=== PATIENT | male | born 1985 | race Caucasian/White ===

== ENCOUNTER 2016-12-02 01:25 | Emergency (ER) | payer SELFPAY ==
[~2016-12-02] VITALS: Ht 177.8 cm; Wt 145.6 kg
[~2016-12-02 01:25] MED LIST: COUM5TAB PO
[2016-12-02 01:32] VITALS: BP 138/90; PULSE 105; RESP 20; TEMP 99.6; O2SAT 96
--- NOTE | 2016-12-02 01:45 | PD ---
HPI Chief Complaint: Pain: Acute or Chronic Time Seen by Provider: 03:26 Travel History International Travel<30 days: No Contact w/Intl Traveler<30days: No Traveled to known affect area: No History of Present Illness HPI 31-year-old male presents to the emergency department for complaint of swelling and discomfort like a leg cramp affecting the right lower extremity specifically the calf area. Patient has history of recurrent DVT and pulmonary embolism. Patient is prescribed Coumadin/warfarin but is noncompliant. Patient reportedly has been out of his Coumadin/warfarin for 2 weeks but has been saving a few Coumadin for emergency and took them yesterday. Patient denies any chest pain pleuritic pain shortness of breath hemoptysis near- syncope or syncope. Patient states because he doesn't have insurance is why he is not compliant with his medications. PFSH Past Medical History Narrative Medical PE DVT clotting disorder no tobacco use nursing notes reviewed Cancer: No Cardiovascular Problems: Yes Diminished Hearing: No Deep Vein Thrombosis: Yes Endocrine: No Genitourinary: No Immune Disorder: No Musculoskeletal: No Neurologic: No Psychiatric: No Reproductive: No Respiratory: No Immunizations Current: Yes Past Surgical History Other Surgery: No Social History Alcohol Use: No Tobacco Use: No Substance Use: No Allergies-Medications (Allergen,Severity, Reaction): Coded Allergies: No Known Allergies (Unverified , 05/09/16) Reported Meds & Prescriptions Reported Meds & Active Scripts Active Warfarin 5 Mg Tab 5 Mg PO DAILY Review of Systems Except as stated in HPI: all other systems reviewed are Neg Physical Exam Narrative GENERAL: Well-developed well-nourished male in no acute distress no respiratory distress; triage vital signs are within normal range except for tachycardia of 105 SKIN: Warm and dry. HEAD: Normocephalic. EYES: No scleral icterus. No injection or drainage. NECK: Supple, trachea midline. No JVD or lymphadenopathy. CARDIOVASCULAR: Regular rate and rhythm without murmurs, gallops, or rubs. RESPIRATORY: Breath sounds equal bilaterally. No accessory muscle use. GASTROINTESTINAL: Abdomen soft, non-tender, nondistended. MUSCULOSKELETAL: No cyanosis, right lower leg edema with posterior calf tenderness dorsalis pedis pulse 2+ to palpation bilaterally with prescription for refill less than 2 seconds per digit BACK: Nontender without obvious deformity. No CVA tenderness. Data Data Last Documented VS Vital Signs Date Time Temp Pulse Resp B/P Pulse Ox O2 Delivery O2 Flow Rate FiO2 12/02/16 02:01 20 12/02/16 01:32 99.6 105 138/90 96 Orders Us Leg Venous Doppler (12/02/16 ) Prothrombin Time / Inr (Pt) (12/02/16 01:42) Labs Laboratory Tests Test 12/02/16 02:00 Prothrombin Time 13.6 SEC Prothromb Time International 1.2 RATIO Ratio MDM Medical Decision Making Medical Screen Exam Complete: Yes Emergency Medical Condition: Yes Medical Record Reviewed: Yes Interpretation(s) inr: 1.2, subtherapeutic Last Impressions Lower Extremity Ultrasound 12/02/16 0000 Signed Impressions: Service Date/Time: Friday, December 02, 2016 02:45 - CONCLUSION: Normal examination. Luis Howard MD Differential Diagnosis Recurrent DVT, medication noncompliance, subtherapeutic INR Narrative Course RLE US ordered INR subtherapeutic at 1.2 however patient has reported that he has not been able take the medication as prescribed for the past 2 weeks @3:28 AM ultrasound of the lower extremity reveals no DVT; patient is informed of imaging results and INR; patient will be given refill for his Coumadin therapy and encouraged to follow-up with his primary care provider Diagnosis Primary Impression: Leg pain, right Additional Impression: Medication refill Referrals: Primary Care Physician call for appointment Patient Instructions: General Instructions Med/Other Pt SpecificInfo: Prescription(s) given Scripts Warfarin 5 Mg Tab5 Mg PO DAILY #30 TAB Ref 0 Prov:Puja Laurent MD 12/02/16 Disposition: 01 DISCHARGE HOME Condition: Stable Puja Laurent MD Dec 02, 2016 01:45 Puja Laurent MD Dec 02, 2016 01:45
[2016-12-02 02:12] LABS: INTERNATIONAL NORMALIZED RATIO 1.2 RATIO; PROTHROMBIN TIME - PATIENT 13.6 SEC (9.8-11.6)
[2016-12-02 02:36] VITALS: BP 119/56; PULSE 93; RESP 20; O2SAT 98
--- NOTE | 2016-12-02 03:02 | RADHPO ---
EXAM DATE/TIME: 12/02/2016 02:45 [facility] COMPARISON: No previous studies available for comparison. INDICATIONS : Thrombosis. Right calf pain and swelling. MEDICAL HISTORY : DVT. Pulmonary embolism. SURGICAL HISTORY : None. ENCOUNTER: [facility] ACUITY: 3 days PAIN SCORE: 3/10 LOCATION: Right leg. TECHNIQUE: Venous ultrasound of the leg was performed from the inguinal ligament to the proximal calf. Real-kacey e, color Doppler and spectral tracing, compression and augmentation techniques were used. FINDINGS: There is normal compressibility of the deep venous system from the inguinal region to the proximal ca lf. No echogenic clot is seen in the lumen of the common femoral, femoral, popliteal, and posterior tibial veins. There is a normal response of the venous system to proximal and distal augmentation an d respiration. CONCLUSION: Normal examination. Luis Howard MD on December 02, 2016 at 3:00 Board Certified Radiologist. This report was verified electronically.
[2016-12-02] MEDS ORDERED: WARF-23 PO (03:29)
[2016-12-02 03:47] VITALS: BP 117/54
== END 2016-12-02 03:50 | disposition home or self-care (01) ==
LOC: PHED 01:25
DX: M79.661 Pain in right lower leg (principal); Z76.0 Encounter for issue of repeat prescription; Z86.711 Personal history of pulmonary embolism; Z86.718 Personal history of other venous thrombosis and embolism
CPT/HCPCS: 85610; 93971

== ENCOUNTER 2017-12-08 15:09 | Emergency (ER) | payer SELFPAY ==
[~2017-12-08 15:09] MED LIST changes: -COUM5TAB PO; +WARF-23 PO
[2017-12-08 15:14] VITALS: BP 150/70; PULSE 107; RESP 14; TEMP 98.7; O2SAT 97
--- NOTE | 2017-12-08 15:56 | RADRPT ---
EXAM DATE/TIME: 12/08/2017 15:26 [facility] COMPARISON: US LEG RIGHT VENOUS DOPPLER, December 02, 2016, 2:45. INDICATIONS : Right leg pain. MEDICAL HISTORY : DVT. Pulmonary embolism. SURGICAL HISTORY : None. ENCOUNTER: [facility] ACUITY: 4 - 6 months PAIN SCORE: 4/10 LOCATION: Right leg. TECHNIQUE: Venous ultrasound of the leg was performed from the inguinal ligament to the proximal calf. Real-kacey e, color Doppler and spectral tracing, compression and augmentation techniques were used. FINDINGS: There is normal compressibility of the deep venous system from the inguinal region to the proximal ca lf. No echogenic clot is seen in the lumen of the common femoral, femoral, popliteal, and posterior tibial veins. There is a normal response of the venous system to proximal and distal augmentation an d respiration. CONCLUSION: No evidence of DVT. No significant change compared to the prior study. Tristen Randhawa MD on December 08, 2017 at 15:52 Board Certified Radiologist. This report was verified electronically.
[2017-12-08] MEDS ORDERED: XARE20TA PO (16:02)
[2017-12-08] MEDS ORDERED: TRAM50TA PO (16:02)
[2017-12-08] MEDS ORDERED: XARE15TA PO (16:02)
[2017-12-08 16:05] LABS: BASOPHIL # 0.1 TH/MM3 (0-0.2); BASOPHIL % 0.6 % (0.0-2.0); EOSINOPHIL # 0.3 TH/MM3 (0-0.4); EOSINOPHIL % 3.2 % (0.0-4.0); HEMATOCRIT 41.5 % (39.0-51.0); HEMOGLOBIN 14.7 GM/DL (13.0-17.0); LYMPHOCYTE # 2.4 TH/MM3 (1.0-4.8); MEAN CELL VOLUME 93.9 FL (80.0-100.0); MEAN CORPUSCULAR HEMOGLOBIN 33.4 PG (27.0-34.0); MEAN CORPUSCULAR HGB CONC 35.6 % (32.0-36.0); MEAN PLATELET VOLUME 8.9 FL (7.0-11.0); MONO % 8.4 % (0.0-8.0); MONOCYTE # 0.8 TH/MM3 (0-0.9); NEUT % 62.8 % (16.0-70.0); PLATELET COUNT 226 TH/MM3 (150-450); RED BLOOD COUNT 4.42 MIL/MM3 (4.50-5.90); RED CELL DISTRIBUTION WIDTH 12.9 % (11.6-17.2); WHITE BLOOD COUNT 9.6 TH/MM3 (4.0-11.0)
--- NOTE | 2017-12-08 16:09 | PD ---
HPI Chief Complaint: Edema Time Seen by Provider: 15:50 Travel History International Travel<30 days: No Contact w/Intl Traveler<30days: No Traveled to known affect area: No History of Present Illness HPI 32-year-old male presents to the emergency department with increasing pain and swelling in the right lower extremity. Patient has history of DVT as well as PE in the past. Patient is currently prescribed Coumadin but has been intermittent with its use secondary to insurance issues. In the right leg has been progressive over the last week. He is questioning whether he has a recurrent DVT. Recently received new health insurance. He is questioning if he should be on something other than Coumadin. He is not currently established with a local PCP. He denies fever, chills, shortness of breath, or other constitutional symptoms. Pain is currently about a 6 out of 10 and worse with palpation of the area. No known drug allergies. PFSH Past Medical History Cancer: No Cardiovascular Problems: Yes Diminished Hearing: No Deep Vein Thrombosis: Yes Endocrine: No Genitourinary: No Immune Disorder: No Musculoskeletal: No Neurologic: No Psychiatric: No Reproductive: No Respiratory: No Immunizations Current: Yes Past Surgical History Other Surgery: No Social History Alcohol Use: No Tobacco Use: No Substance Use: Yes (MARIJUANA) Allergies-Medications (Allergen,Severity, Reaction): Coded Allergies: No Known Allergies (Unverified Adverse Reaction, Unknown, 12/08/17) Reported Meds & Prescriptions Reported Meds & Active Scripts Active Reported Warfarin 3 Mg Tab 3 Mg PO DAILY Review of Systems Except as stated in HPI: all other systems reviewed are Neg General / Constitutional: No: Fever Eyes: No: Visual changes HENT: No: Headaches Cardiovascular: No: Chest Pain or Discomfort Respiratory: No: Shortness of Breath Gastrointestinal: No: Abdominal Pain Genitourinary: No: Dysuria Musculoskeletal: Positive: Myalgias, Edema, Pain Skin: No Rash Neurologic: No: Weakness Psychiatric: No: Depression Endocrine: No: Polydipsia Hematologic/Lymphatic: No: Easy Bruising Physical Exam Narrative GENERAL: Moderately obese male in no obvious distress SKIN: Warm and dry. Normal color. Normal turgor. Patient has obvious venous stasis area of the right lower medial calf secondary to varicose veins. No significant heat but this is the area is tender. It is somewhat indurated. Patient has tenderness as well along the right medial calf. HEAD: Atraumatic. Normocephalic. EYES: Pupils equal and round. No scleral icterus. No injection or drainage. ENT: No nasal bleeding or discharge. Mucous membranes pink and moist. NECK: Trachea midline. No JVD. CARDIOVASCULAR: Regular rate and rhythm. RESPIRATORY: No accessory muscle use. Clear to auscultation. Breath sounds equal bilaterally. GASTROINTESTINAL: Abdomen soft, non-tender, nondistended. Hepatic and splenic margins not palpable. MUSCULOSKELETAL: Extremities without clubbing, cyanosis, or edema. No obvious deformities. Range of motion is full. Negative Homans sign noted. Neurovascular exam is normal. NEUROLOGICAL: Awake and alert. No obvious cranial nerve deficits. Motor grossly within normal limits. Five out of 5 muscle strength in the arms and legs. Normal speech. PSYCHIATRIC: Appropriate mood and affect; insight and judgment normal. Data Data Last Documented VS Vital Signs Date Time Temp Pulse Resp B/P (MAP) Pulse Ox O2 Delivery O2 Flow Rate FiO2 12/08/17 15:14 98.7 107 14 150/70 (96) 97 Orders Orders Complete Blood Count With Diff (12/08/17 15:21) Comprehensive Metabolic Panel (12/08/17 15:21) Prothrombin Time / Inr (Pt) (12/08/17 15:21) Act Partial Throm Time (Ptt) (12/08/17 15:21) Us Leg Venous Doppler (12/08/17 ) Ed Discharge Order (12/08/17 17:04) Labs Laboratory Tests Test 12/08/17 15:25 White Blood Count 9.6 TH/MM3 Red Blood Count 4.42 MIL/MM3 Hemoglobin 14.7 GM/DL Hematocrit 41.5 % Mean Corpuscular Volume 93.9 FL Mean Corpuscular Hemoglobin 33.4 PG Mean Corpuscular Hemoglobin Concent 35.6 % Red Cell Distribution Width 12.9 % Platelet Count 226 TH/MM3 Mean Platelet Volume 8.9 FL Neutrophils (%) (Auto) 62.8 % Lymphocytes (%) (Auto) 25.0 % Monocytes (%) (Auto) 8.4 % Eosinophils (%) (Auto) 3.2 % Basophils (%) (Auto) 0.6 % Neutrophils # (Auto) 6.0 TH/MM3 Lymphocytes # (Auto) 2.4 TH/MM3 Monocytes # (Auto) 0.8 TH/MM3 Eosinophils # (Auto) 0.3 TH/MM3 Basophils # (Auto) 0.1 TH/MM3 CBC Comment DIFF FINAL Differential Comment Prothrombin Time 12.0 SEC Prothromb Time International Ratio 1.2 RATIO Activated Partial Thromboplast Time 23.6 SEC Blood Urea Nitrogen 13 MG/DL Creatinine 0.90 MG/DL Random Glucose 76 MG/DL Total Protein 8.2 GM/DL Albumin 4.1 GM/DL Calcium Level 8.8 MG/DL Alkaline Phosphatase 70 U/L Aspartate Amino Transf (AST/SGOT) 34 U/L Alanine Aminotransferase (ALT/SGPT) 67 U/L Total Bilirubin 0.2 MG/DL Sodium Level 140 MEQ/L Potassium Level 3.7 MEQ/L Chloride Level 110 MEQ/L Carbon Dioxide Level 24.2 MEQ/L Anion Gap 6 MEQ/L Estimat Glomerular Filtration Rate 97 ML/MIN [facility] Medical Decision Making Medical Screen Exam Complete: Yes Emergency Medical Condition: Yes Medical Record Reviewed: Yes Differential Diagnosis Phlebitis. DVT. Right calf pain. Varicose veins. Narrative Course Labs ordered including including CBC, CMP, and coagulation studies. Ultrasound of the right leg is ordered to rule out DVT. Ultrasound is negative for DVT. Labs show normal CBC. CMP is unremarkable Violation states show PT of 12.0, INR 1.2. APTT is 23.6. Patient is to discontinue his Coumadin, and start Xarelto 15 mg twice a day 21 days, and then start Xarelto 20 mg daily #30. Patient is given tramadol 50 mg one every 6 hours when necessary pain #20. Patient is to use hot packs to the area that is painful, for stockings as discussed. Patient follow local primary care physician. Patient can return if symptoms worsen as needed. Diagnosis Primary Impression: Phlebitis of leg, right, superficial Additional Impression: History of DVT in adulthood Referrals: [facility] Patient Instructions: General Instructions, Superficial Thrombophlebitis (ED) Additional Instructions: Patient is to discontinue his Coumadin, and start Xarelto 15 mg twice a day 21 days, and then start Xarelto 20 mg daily #30. Patient is given tramadol 50 mg one every 6 hours when necessary pain #20. Patient is to use hot packs to the area that is painful, for stockings as discussed. Patient follow local primary care physician. Patient can return if symptoms worsen as needed. Med/Other Pt SpecificInfo: Prescription(s) given, Existing Med Changed Disposition: 01 DISCHARGE HOME Condition: Stable Allan Christian Dec 08, 2017 16:09
[2017-12-08] MEDS ORDERED: WARF-58 PO (16:10)
[2017-12-08 16:19] LABS: INTERNATIONAL NORMALIZED RATIO 1.2 RATIO
[2017-12-08 16:41] LABS: ALBUMIN 4.1 GM/DL (3.4-5.0); ALT (GPT) 67 U/L (12-78); AST (GOT) 34 U/L (15-37); BICARBONATE 24.2 MEQ/L (21.0-32.0); BLOOD UREA NITROGEN 13 MG/DL (7-18); CALCIUM 8.8 MG/DL (8.5-10.1); CHLORIDE 110 MEQ/L (98-107); GLOMERULAR FILTRATION RATE 97 ML/MIN (>89); GLUCOSE,RANDOM 76 MG/DL (74-106); SODIUM (NA) 140 MEQ/L (136-145)
[2017-12-08 16:44] LABS: ALKALINE PHOSPHATASE 70 U/L (45-117); TOTAL BILIRUBIN ADULT 0.2 MG/DL (0.2-1.0); TOTAL PROTEIN 8.2 GM/DL (6.4-8.2)
== END 2017-12-08 17:40 | disposition home or self-care (01) ==
LOC: NEPC 15:09
DX: I80.01 Phlebitis and thrombophlebitis of superficial vessels of right lower extremity (principal); Z79.01 Long term (current) use of anticoagulants; Z86.718 Personal history of other venous thrombosis and embolism; Z86.711 Personal history of pulmonary embolism
CPT/HCPCS: 80053; 85025; 85610; 85730; 93971; 99284